=== PATIENT | female | born 1950 | race African-American/Black ===

== ENCOUNTER → 2017-05-06 | Outpatient (CLI) | payer OTHER ==
[2017-05-06 10:07] LABS: BASO % 0.2 %; BASO ABS # 0.01 K/uL (0-0.2); EOS % 4.7 %; EOS ABS # 0.23 K/uL (0-0.5); HEMATOCRIT 38.8 % (37-47); HEMOGLOBIN 12.9 g/dL (12.0-16.0); IG# 0.01 K/uL (0.00-0.02); LYMPH % 45.2 %; LYMPH ABS # 2.22 K/uL (1.2-3.4); MEAN CELL VOLUME 85.8 fL (80-100); MEAN CORPUSCULAR HEMOGLOBIN 28.5 pg (25-34); MEAN CORPUSCULAR HGB CONC 33.2 g/dl (32-36); MONO % 9.8 %; MONO ABS # 0.48 K/uL (0.11-0.59); NEUT % 39.9 %; NEUT ABS # 1.96 K/uL (1.4-6.5); PLATELET COUNT 241 K/uL (130-400); RED CELL DISTRIBUTION WIDTH CV 14.2 % (11.5-14.5); WHITE BLOOD COUNT 4.91 K/uL (4.8-10.8)
[2017-05-06 10:55] LABS: ALBUMIN 3.6 gm/dl (3.4-5.0); ALT/SGPT 21 U/L (12-78); BLOOD UREA NITROGEN 17 mg/dl (7-18); CALCIUM 9.6 mg/dl (8.5-10.1); CARBON DIOXIDE 32 mmol/L (21-32); CREATININE 0.79 mg/dl (0.60-1.20); GLUCOSE 95 mg/dl (70-99); POTASSIUM 3.2 mmol/L (3.5-5.1); SODIUM 139 mmol/L (136-145)
[2017-05-06 10:58] LABS: ALKALINE PHOSPHATASE 78 U/L (45-117); AST/SGOT 18 U/L (15-37); TOTAL PROTEIN 7.9 gm/dl (6.4-8.2)
[2017-05-10 02:22] LABS: ANA SCREEN TC 249X POSITIVE (NEGATIVE); ANTI-SS-A <1.0 NEG AI (<1.0 NEG); ANTI-SS-B <1.0 NEG AI (<1.0 NEG); COMPLEMENT C3 TC 44859W 150 MG/DL (90-180); COMPLEMENT C4 TC 44982E 57 MG/DL (16-47)
== END | disposition home or self-care (01) ==
LOC: C.LAB1850 08:58
PROVIDERS: ATTEND Psychiatry & Neurology Neurology
DX: Z51.81 Encounter for therapeutic drug level monitoring (principal); M32.9 Systemic lupus erythematosus, unspecified

== ENCOUNTER → 2017-09-18 | Outpatient (CLI) | payer OTHER ==
--- NOTE | 2017-09-18 14:14 | DIAGNOSTIC IMAGING REPORT ---
L KNEE 1 OR 2 VIEWS ROUTINE CLINICAL HISTORY: E55.9 Vitamin D [id number] Mixed connective tissue diseaseM COMPARISON: None. DISCUSSION: Moderate degenerative change medial joint compartment. All remaining joint compartments are well preserved. Bony mineralization is normal. There is no evidence for soft tissue swelling. No significant joint effusion. IMPRESSION: Mild degenerative change medial joint compartment. Otherwise negative study. The above report was generated using voice recognition software. It may contain grammatical, syntax or spelling errors. Electronically signed by: Clay Brower M.D. 09/18/2017 2:13 PM Dictated Date/Time: 09/18/2017 2:13 PM
--- NOTE | 2017-09-18 14:15 | DIAGNOSTIC IMAGING REPORT ---
RIGHT KNEE 2 VIEWS CLINICAL HISTORY: Right knee pain. FINDINGS: AP and lateral views of the right knee are obtained. No prior studies are available for comparison at the time of dictation. The skeletal structures are osteopenic. No fracture is seen. There is mild to moderate tricompartmental degenerative joint space narrowing, greatest at the patellofemoral articulation. There are marginal osteophytes and patellar enthesophytes. A small joint effusion is noted. The overlying soft tissues are within normal limits. IMPRESSION: 1. Small joint effusion with no acute bony abnormality identified. 2. Osteopenia and degenerative change as above. Electronically signed by: Edi Ramires M.D. 09/18/2017 2:14 PM Dictated Date/Time: 09/18/2017 2:12 PM
== END | disposition home or self-care (01) ==
LOC: C.RAD1850 14:03
PROVIDERS: ATTEND Internal Medicine Rheumatology
DX: E55.9 Vitamin D deficiency, unspecified (principal); M35.1 Other overlap syndromes; M25.561 Pain in right knee; M25.562 Pain in left knee; M35.3 Polymyalgia rheumatica; M25.461 Effusion, right knee; M85.88 Other specified disorders of bone density and structure, other site